=== PATIENT | male | born 1990 ===

== ENCOUNTER 2018-07-06 18:47 | Emergency (ER) | payer OTHER ==
[2018-07-06 19:12] VITALS: BP 132/70; PULSE 62; RESP 16; TEMP 98.2; O2SAT 100
--- NOTE | 2018-07-06 19:25 | ED PDOC ---
Upper Extremity Pain/Injury Chief Complaint (Provider): Finger,Hand,&Wrist History Per: Patient History/Exam Limitations: no limitations Onset/Duration Of Symptoms: Days Current Symptoms Are (Timing): Still Present Additional Complaint(s): Yehuda Lee is a 27 year old male with no past medical history who is presenting to the ED for evaluation of wrist pain, ongoing for 2 months that worsened this week. He reports a long history of trigger fingers in his 3,4,5 digits of his right hand. Patient states that he wanted to make sure that he didnt have a fracture, but denies hitting any object or anyone. He also denies any falls, injury, or trauma, and states that he has not taken any medications for pain today. Of note, patient follows up with [facility] in [place] but is in the middle of a move and has not yet set up care in [place]. <Ronel Malone - Last Filed: 07/06/18 19:58> <Maverick Salazar - Last Filed: 07/08/18 04:42> Time Seen by Provider: 07/06/18 19:15 Chief Complaint (Nursing): Finger,Hand,&Wrist Past Medical History Reviewed: Historical Data, Nursing Documentation, Vital Signs Vital Signs: Last Vital Signs Temp 98.2 F 07/06/18 19:10 Pulse 62 07/06/18 19:10 Resp 16 07/06/18 19:10 BP 132/70 07/06/18 19:10 Pulse Ox 100 07/06/18 19:10 - Medical History PMH: No Chronic Diseases - Surgical History Surgical History: No Surg Hx - Family History Family History: States: Unknown Family Hx <Ronel Malone - Last Filed: 07/06/18 19:58> Vital Signs: Last Vital Signs Temp 98.2 F 07/06/18 19:10 Pulse 62 07/06/18 19:10 Resp 16 07/06/18 19:10 BP 132/70 07/06/18 19:10 Pulse Ox 100 07/06/18 19:58 <Maverick Salazar - Last Filed: 07/08/18 04:42> - Home Medications Home Medications: Ambulatory Orders Medication Instructions Recorded Ibuprofen [Motrin] 600 mg PO Q8 PRN #21 tab 07/06/18 - Allergies Allergies/Adverse Reactions: Allergies Allergy/AdvReac Type Severity Reaction Status Date / Time No Known Allergies Allergy Verified 07/06/18 19:10 Review of Systems ROS Statement: Except As Marked, All Systems Reviewed And Found Negative Musculoskeletal: Positive for: Hand Pain (and wrist pain) <Ronel Malone - Last Filed: 07/06/18 19:58> Physical Exam - Reviewed Nursing Documentation Reviewed: Yes Vital Signs Reviewed: Yes - Physical Exam Appears: Positive for: Well, Non-toxic, No Acute Distress Head Exam: Positive for: ATRAUMATIC, NORMAL INSPECTION, NORMOCEPHALIC Extremity: Positive for: Other (right upper extremity: tenderness to dorsum of h and and mid wrist) Neurologic/Psych: Positive for: Alert, Oriented. Negative for: Motor/Sensory Deficits <Ronel Malone - Last Filed: 07/06/18 19:58> - ECG O2 Sat by Pulse Oximetry: 100 (RA) Pulse Ox Interpretation: Normal - Progress ED Course And Treament: xry of hand: no fx xry of wrist: no fx <Ronel Malone - Last Filed: 07/06/18 19:58> Medical Decision Making Medical Decision Making: Time: 19:13 Plan: --X-Ray right hand --X-Ray right wrist Scribe Attestation: Documented by Torie Ventura, acting as a scribe for Ronel Malone PA-C. Provider Scribe Attestation: All medical record entries made by the Scribe were at my direction and personally dictated by me. I have reviewed the chart and agree that the record accurately reflects my personal performance of the history, physical exam, medical decision making, and the department course for this patient. I have also personally directed, reviewed, and agree with the discharge instructions and disposition. <Ronel Malone - Last Filed: 07/06/18 19:58> Disposition - Patient ED Disposition Is Patient to be Admitted: No - Disposition Disposition: Routine/Home Disposition Time: 19:48 <Ronel Malone - Last Filed: 07/06/18 19:58> <Maverick Salazar - Last Filed: 07/08/18 04:42> - Clinical Impression Clinical Impression: Wrist pain, right, Trigger finger - Disposition Referrals: Stephanie Gonzalez MD [Staff Provider] - Condition: FAIR Prescriptions: Ibuprofen [Motrin] 600 mg PO Q8 PRN #21 tab PRN Reason: Pain, Moderate (4-7) Instructions: Trigger Finger, Carpal Tunnel Exercises, Trigger Finger (DC) Forms: [facility] ED School/Work Excuse - PA / [employer] / Resident Statement / has reviewed & agrees with the documentation as recorded. <Maverick Salazar - Last Filed: 07/08/18 04:42>
--- NOTE | 2018-07-07 08:38 | RAD ---
PROCEDURE: Right Hand Radiographs. HISTORY: hand pain COMPARISON: None. FINDINGS: BONES: Three views of the right hand were performed for right hand pain. No fracture is seen. No dislocation of the phalanges is seen. No periosteal reaction or erosion is noted. Visualized carpal bones and distal radius are intact. Visualized soft tissues show no evidence of radiopaque foreign body. Metacarpal heads are intact. JOINTS: Normal. No osteoarthritic changes. SOFT TISSUES: Normal. OTHER FINDINGS: None. IMPRESSION: Normal right hand radiographs.
--- NOTE | 2018-07-07 08:39 | RAD ---
Date of service: 07/06/2018 PROCEDURE: Right Wrist Radiographs. HISTORY: WRIST PAIN COMPARISON: None. FINDINGS: BONES: Three views of the right wrist were performed for right wrist pain. No fracture is seen. Carpal bones are normal in alignment. Navicular bone is intact. Distal radius and ulna are intact. Visualized metacarpals are unremarkable. No significant soft tissue swelling is seen. No abnormal soft tissue calcification or chondrocalcinosis is noted. No erosions are noted. JOINTS: Normal. No dislocation. SOFT TISSUES: Normal. OTHER FINDINGS: None. IMPRESSION: No evidence of fracture. Otherwise unremarkable x-ray of the right wrist.
== END 2018-07-06 20:04 | disposition home or self-care (01) ==
LOC: H.ER 18:47
DX: M25.531 Pain in right wrist (principal); M65.30 Trigger finger, unspecified finger